=== PATIENT | female | born 1935 | race Caucasian/White ===

== ENCOUNTER 2021-02-20 11:59 | Inpatient (IN) ==
[2021-02-20] MEDS: Latanoprost 2.5 ML BOTTLE BOTH EYES SCH (21:01)
[2021-02-21] MEDS: *HR* Enoxaparin 40 MG/0.4 ML SYRINGE SQ SCH (06:21)
[2021-02-21 07:03] LABS: Basophils % 0.5 %; Eosinophils # 0.3 K/mcL (0.0-0.6); Eosinophils % 3.8 %; Hematocrit 35.1 % (35.3-44.9); Hemoglobin 12.2 g/dL (11.5-15.4); Immature Granulocytes % 1.5 % (0-4); Lymphocytes # 1.5 K/mcL (0.6-4.6); Lymphocytes % 19.7 %; Mean Corpuscular HGB Conc 34.8 g/dL (31.6-35.5); Mean Corpuscular Hemoglobin 31.1 pg (28.0-33.3); Mean Corpuscular Volume 89.5 fL (83.0-100.0); Monocytes # 0.8 K/mcL (0.0-1.3); Monocytes % 10.8 %; Neutrophils # 4.7 K/mcL (1.6-8.9); Platelet Count 246 K/mcL (140-400); Red Blood Count 3.92 M/mcL (3.82-4.97); Red Cell Distribution Width 12.8 % (11.5-14.5); Segmented Neutrophils % 63.7 %; White Blood Count 7.4 K/mcL (4.3-11.1)
[2021-02-21] MEDS: FLUoxetine 20 MG CAPSULE PO SCH (07:24)
[2021-02-21 07:57] LABS: BUN/Creatinine Ratio 20 (6-26); Blood Urea Nitrogen 10 mg/dL (8-23); Calcium 9.5 mg/dL (8.6-10.3); Carbon Dioxide 27 mEq/L (23-29); Chloride 93 mEq/L (98-107); Glucose 89 mg/dL (70-105); Osmolality,Calculated 261 (280-300); Potassium 4.2 mEq/L (3.5-5.1); Sodium 126 mEq/L (136-145); eGFR For African Americans > 60 (> 60); eGFR For Non-African Americans > 60 (> 60)
[2021-02-21] MEDS: 0.9 % Sodium Chloride 1,000 ML IVC SCH ×2 (10:05→20:19)
[2021-02-21] MEDS: Latanoprost 2.5 ML BOTTLE BOTH EYES SCH (21:39)
[2021-02-22] MEDS: *HR* Enoxaparin 40 MG/0.4 ML SYRINGE SQ SCH (05:49)
[2021-02-22] MEDS: 0.9 % Sodium Chloride 1,000 ML IVC SCH ×2 (05:50→14:25)
[2021-02-22] MEDS: FLUoxetine 20 MG CAPSULE PO SCH (08:02)
[2021-02-22] MEDS: Melatonin 3 MG TABLET PO PRN (19:59)
[2021-02-22] MEDS: Latanoprost 2.5 ML BOTTLE BOTH EYES SCH (19:59)
[2021-02-23] MEDS: 0.9 % Sodium Chloride 1,000 ML IVC SCH ×4 (01:30→21:25)
[2021-02-23] MEDS: *HR* Enoxaparin 40 MG/0.4 ML SYRINGE SQ SCH (05:28)
[2021-02-23] MEDS: FLUoxetine 20 MG CAPSULE PO SCH (07:47)
[2021-02-23] MEDS: Latanoprost 2.5 ML BOTTLE BOTH EYES SCH (20:35)
[2021-02-24] MEDS: *HR* Enoxaparin 40 MG/0.4 ML SYRINGE SQ SCH (05:28)
[2021-02-24] MEDS: FLUoxetine 20 MG CAPSULE PO SCH (09:23)
[2021-02-24] MEDS: 0.9 % Sodium Chloride 1,000 ML IVC SCH (17:52)
[2021-02-24] MEDS: Latanoprost 2.5 ML BOTTLE BOTH EYES SCH (19:46)
[2021-02-24] MEDS: Melatonin 3 MG TABLET PO PRN (19:48)
[2021-02-25] MEDS: 0.9 % Sodium Chloride 1,000 ML IVC SCH ×3 (03:50→23:55)
[2021-02-25] MEDS: *HR* Enoxaparin 40 MG/0.4 ML SYRINGE SQ SCH (07:12)
[2021-02-25 07:19] LABS: BUN/Creatinine Ratio 13 (6-26); Blood Urea Nitrogen 7 mg/dL (8-23); Carbon Dioxide 26 mEq/L (23-29); Chloride 100 mEq/L (98-107); Glucose 78 mg/dL (70-105); Osmolality,Calculated 269 (280-300); Potassium 3.5 mEq/L (3.5-5.1); Sodium 131 mEq/L (136-145); eGFR For African Americans > 60 (> 60); eGFR For Non-African Americans > 60 (> 60)
[2021-02-25] MEDS: FLUoxetine 20 MG CAPSULE PO SCH (08:10)
[2021-02-25] MEDS: Latanoprost 2.5 ML BOTTLE BOTH EYES SCH (19:32)
[2021-02-25] MEDS: Melatonin 3 MG TABLET PO PRN (19:32)
[2021-02-26] MEDS: *HR* Enoxaparin 40 MG/0.4 ML SYRINGE SQ SCH (05:51)
[2021-02-26] MEDS: FLUoxetine 20 MG CAPSULE PO SCH (08:29)
[2021-02-26] MEDS ORDERED: hydrALAZINE 25 MG TABLET PO PRN (18:28)
[2021-02-26] MEDS: haloperidoL 1 MG TABLET PO PRN (18:43)
[2021-02-26] MEDS: Latanoprost 2.5 ML BOTTLE BOTH EYES SCH (22:59)
[2021-02-27] MEDS: Melatonin 3 MG TABLET PO PRN (00:04)
[2021-02-27] MEDS: haloperidoL 1 MG TABLET PO PRN ×3 (00:35→16:23)
[2021-02-27] MEDS: *HR* Enoxaparin 40 MG/0.4 ML SYRINGE SQ SCH (06:21)
[2021-02-27] MEDS: FLUoxetine 20 MG CAPSULE PO SCH (08:33)
[2021-02-27] MEDS: Latanoprost 2.5 ML BOTTLE BOTH EYES SCH (22:56)
[2021-02-28] MEDS: *HR* Enoxaparin 40 MG/0.4 ML SYRINGE SQ SCH (06:03)
[2021-02-28] MEDS: FLUoxetine 20 MG CAPSULE PO SCH (09:14)
[2021-02-28] MEDS: Sennosides/Docusate Sodium TABLET PO SCH (21:46)
[2021-02-28] MEDS: Latanoprost 2.5 ML BOTTLE BOTH EYES SCH (21:46)
[2021-03-01] MEDS: *HR* Enoxaparin 40 MG/0.4 ML SYRINGE SQ SCH (06:10)
[2021-03-01 07:50] VITALS: BP 134/81; PULSE 70; RESP 18; TEMP 98.2; O2SAT 96
[2021-03-01 08:18] LABS: Basophils % 0.4 %; Eosinophils # 0.2 K/mcL (0.0-0.6); Eosinophils % 2.1 %; Hematocrit 32.8 % (35.3-44.9); Hemoglobin 11.2 g/dL (11.5-15.4); Immature Granulocytes % 0.9 % (0-4); Lymphocytes # 1.9 K/mcL (0.6-4.6); Mean Corpuscular HGB Conc 34.1 g/dL (31.6-35.5); Mean Corpuscular Volume 90.9 fL (83.0-100.0); Mean Platelet Volume 9.5 fL (9.4-12.4); Monocytes # 0.8 K/mcL (0.0-1.3); Monocytes % 8.8 %; Neutrophils # 6.1 K/mcL (1.6-8.9); Platelet Count 293 K/mcL (140-400); Red Blood Count 3.61 M/mcL (3.82-4.97); Red Cell Distribution Width 13.2 % (11.5-14.5); Segmented Neutrophils % 66.8 %; White Blood Count 9.1 K/mcL (4.3-11.1)
[2021-03-01 08:36] LABS: BUN/Creatinine Ratio 14 (6-26); Blood Urea Nitrogen 10 mg/dL (8-23); Calcium 9.7 mg/dL (8.6-10.3); Carbon Dioxide 28 mEq/L (23-29); Chloride 96 mEq/L (98-107); Glucose 87 mg/dL (70-105); Osmolality,Calculated 266 (280-300); Potassium 3.8 mEq/L (3.5-5.1); Sodium 129 mEq/L (136-145); eGFR For African Americans > 60 (> 60); eGFR For Non-African Americans > 60 (> 60)
[2021-03-01] MEDS: Sennosides/Docusate Sodium TABLET PO SCH (09:37)
[2021-03-01] MEDS: FLUoxetine 20 MG CAPSULE PO SCH (09:37)
[2021-03-01] MEDS: haloperidoL 1 MG TABLET PO PRN (14:20)
== END 2021-03-01 17:00 | DRG 71 ==
LOC: INPPIK 16:57
PROVIDERS: ADMIT Internal Medicine; ATTEND Internal Medicine